=== PATIENT | male | born 2000 | race African-American/Black ===

== ENCOUNTER 2019-11-11 15:14 | Emergency (ER) | payer OTHER, SELFPAY ==
--- NOTE | 2019-11-11 16:26 | RAD ---
LEFT HUMEROUS TWO VIEWS: History: Injury. Left arm pain and swelling. FINDINGS/IMPRESSION: The left humerus appears intact. POS: OFF
== END 2019-11-11 16:47 | disposition home or self-care (01) ==
LOC: ERS 15:14
DX: S40.022A Contusion of left upper arm, initial encounter (principal); V87.8XXA Person injured in other specified noncollision transport accidents involving motor vehicle (traffic), initial encounter